=== PATIENT | male | born 2000 | race Caucasian/White ===

== ENCOUNTER 2021-07-21 21:37 | Inpatient (IN) | payer OTHER ==
[2021-07-21 22:42] VITALS: BMI 23.2
[2021-07-22] MEDS ORDERED: MAGNESIUM CITRATE 300 ML BOTTLE PO PRN (00:08)
[2021-07-22] MEDS ORDERED: BISMUTH SUBSALICYLATE 524 MG/30 ML PO PRN (00:08)
[2021-07-22] MEDS ORDERED: MENTHOL/PHENOL 1 EACH UD MM PRN (00:08)
[2021-07-22] MEDS ORDERED: DICYCLOMINE HCL 10 MG CAPSULE PO PRN (00:08)
[2021-07-22] MEDS ORDERED: MAGNESIUM HYDROX 2400MG/30ML ORAL SUSPENSION 30 ML CUP PO PRN (00:08)
[2021-07-22] MEDS ORDERED: MAG HYDROX/AL HYDROX/SIMETH 30 ML UNIT-DOSE CUP PO PRN (00:08)
[2021-07-22] MEDS ORDERED: LOPERAMIDE HCL 2 MG CAPSULE PO PRN (00:08)
[2021-07-22] MEDS ORDERED: ACETAMINOPHEN 325 MG TABLET (FP) PO PRN (00:08)
[2021-07-22] MEDS ORDERED: diazePAM 5 MG TABLET PO ONE (00:09)
[2021-07-22] MEDS: MELATONIN 5 MG TABLETS PO SCH ×2 (01:35→22:32)
[2021-07-22] MEDS: diazePAM 5 MG TABLET PO SCH ×4 (06:59→22:34)
[2021-07-22] MEDS: ONDANSETRON *ODT* 4 MG TABLET SL PRN ×2 (07:03→16:56)
[2021-07-22] MEDS: BUPRENORPHINE/NALOXONE 8 MG/2 MG FILM PACKET SL SCH (10:26)
[2021-07-22] MEDS: PRENATAL VITAMINS W/ FOLIC ACID TABLET (FP) PO SCH (10:26)
[2021-07-22] MEDS: hydrOXYzine PAMOATE 25 MG CAPSULE (FP) PO PRN (12:45)
[2021-07-22] MEDS: diazePAM 5 MG TABLET PO PRN ×2 (12:45→19:28)
[2021-07-22] MEDS: ACETAMINOPHEN 325 MG TABLET (FP) PO PRN (12:47)
[2021-07-22 14:55] LABS: HEMATOCRIT 36.4 % (35.4-49); HEMOGLOBIN 12.3 GM/dL (11.7-16.9); MCH 30.7 pg (25.7-33.7); MCHC 33.9 g/dl (32.0-35.9); MEAN CELL VOLUME 90.6 fl (80-96); MEAN PLT VOLUME 7.8 fl (7.5-11.1); PLATELET COUNT 254 10^3/uL (134-434); RBC 4.01 M/mm3 (4.00-5.60); RDW 12.4 % (11.9-15.9); WHITE BLOOD COUNT 7.1 K/mm3 (4.0-10.0)
[2021-07-22 15:26] LABS: CALCIUM 9.4 mg/dL (8.5-10.1)
[2021-07-22 15:27] LABS: ALBUMIN 3.6 g/dl (3.4-5.0); BLOOD UREA NITROGEN 7.9 mg/dL (7-18)
[2021-07-22 15:31] LABS: BILIRUBIN,TOTAL 0.3 mg/dL (0.2-1)
[2021-07-22 15:32] LABS: TOT PROT 7.4 g/dl (6.4-8.2)
[2021-07-22] MEDS: METHOCARBAMOL 500 MG TABLET PO PRN ×2 (16:56→22:34)
[2021-07-22] MEDS: NICOTINE POLACRILEX 2 MG GUM BUC PRN ×2 (17:17→20:13)
[2021-07-22] MEDS: THIAMINE HCL 100 MG TABLET (FP) PO SCH (22:32)
[2021-07-22] MEDS: QUEtiapine FUMARATE 100 MG TABLET (FP) PO SCH (22:32)
[2021-07-23] MEDS: diazePAM 5 MG TABLET PO SCH ×3 (05:13→22:16)
[2021-07-23] MEDS: ONDANSETRON *ODT* 4 MG TABLET SL PRN ×2 (05:22→14:51)
[2021-07-23] MEDS: diazePAM 5 MG TABLET PO PRN ×2 (09:02→18:40)
[2021-07-23] MEDS: BUPRENORPHINE/NALOXONE 8 MG/2 MG FILM PACKET SL SCH (10:39)
[2021-07-23] MEDS: hydrOXYzine PAMOATE 25 MG CAPSULE (FP) PO PRN ×2 (10:39→20:53)
[2021-07-23] MEDS: METHOCARBAMOL 500 MG TABLET PO PRN ×2 (10:39→20:53)
[2021-07-23] MEDS: PRENATAL VITAMINS W/ FOLIC ACID TABLET (FP) PO SCH (10:39)
[2021-07-23] MEDS: NICOTINE POLACRILEX 2 MG GUM BUC PRN (14:50)
[2021-07-23] MEDS: MELATONIN 5 MG TABLETS PO SCH (22:15)
[2021-07-23] MEDS: QUEtiapine FUMARATE 100 MG TABLET (FP) PO SCH (22:15)
[2021-07-23] MEDS: THIAMINE HCL 100 MG TABLET (FP) PO SCH (22:16)
[2021-07-24] MEDS: diazePAM 5 MG TABLET PO PRN ×5 (05:44→23:11)
[2021-07-24] MEDS: ONDANSETRON *ODT* 4 MG TABLET SL PRN ×2 (05:50→14:31)
[2021-07-24] MEDS: ACETAMINOPHEN 325 MG TABLET (FP) PO PRN (05:50)
[2021-07-24] MEDS: diazePAM 5 MG TABLET PO SCH ×2 (06:37→17:52)
[2021-07-24] MEDS: NICOTINE POLACRILEX 2 MG GUM BUC PRN (07:22)
[2021-07-24] MEDS: METHOCARBAMOL 500 MG TABLET PO PRN ×2 (10:16→17:52)
[2021-07-24] MEDS: BUPRENORPHINE/NALOXONE 8 MG/2 MG FILM PACKET SL SCH (10:18)
[2021-07-24] MEDS: PRENATAL VITAMINS W/ FOLIC ACID TABLET (FP) PO SCH (10:18)
[2021-07-24] MEDS: hydrOXYzine PAMOATE 25 MG CAPSULE (FP) PO PRN (17:52)
[2021-07-24] MEDS: IBUPROFEN 400 MG TABLET (FP) PO PRN (20:37)
[2021-07-24 21:51] VITALS: TEMP 96.4
[2021-07-24] MEDS: MELATONIN 5 MG TABLETS PO SCH (22:04)
[2021-07-24] MEDS: QUEtiapine FUMARATE 100 MG TABLET (FP) PO SCH (22:06)
[2021-07-24] MEDS: THIAMINE HCL 100 MG TABLET (FP) PO SCH (22:08)
[2021-07-25] MEDS: METHOCARBAMOL 500 MG TABLET PO PRN (03:42)
[2021-07-25] MEDS: ONDANSETRON *ODT* 4 MG TABLET SL PRN (03:43)
[2021-07-25] MEDS: hydrOXYzine PAMOATE 25 MG CAPSULE (FP) PO PRN (03:44)
[2021-07-25] MEDS ORDERED: diazePAM 5 MG TABLET PO ONE (06:00)
[2021-07-25 06:45] VITALS: BP 108/74; PULSE 99
[2021-07-25] MEDS: IBUPROFEN 400 MG TABLET (FP) PO PRN (07:30)
[2021-07-25] MEDS: BUPRENORPHINE/NALOXONE 8 MG/2 MG FILM PACKET SL SCH (09:01)
[2021-07-25] MEDS: PRENATAL VITAMINS W/ FOLIC ACID TABLET (FP) PO SCH (09:01)
== END 2021-07-25 09:10 | disposition home or self-care (01) | DRG 773 ==
LOC: YASAS 21:37 → Y3N 07-22
PROVIDERS: ADMIT Allergy & Immunology; ATTEND Allergy & Immunology
PROC: HZ2ZZZZ Detoxification Services for Substance Abuse Treatment (ICD-10-PCS; principal; 2021-07-22)
DX: F11.23 Opioid dependence with withdrawal (principal); F13.20 Sedative, hypnotic or anxiolytic dependence, uncomplicated; F12.20 Cannabis dependence, uncomplicated; F17.210 Nicotine dependence, cigarettes, uncomplicated; F19.24 Other psychoactive substance dependence with psychoactive substance-induced mood disorder; F31.9 Bipolar disorder, unspecified; F41.8 Other specified anxiety disorders; G47.00 Insomnia, unspecified; Z86.59 Personal history of other mental and behavioral disorders; Z91.14 Patient's other noncompliance with medication regimen
CPT/HCPCS: 36415; 80053; 85027; 86780; C9803; Q0162; U0003; U0005